=== PATIENT | female | born 1970 | race African-American/Black ===

== ENCOUNTER 2020-05-15 16:45 | Emergency (ER) | payer BC ==
--- NOTE | 2020-05-15 17:10 | EDM.PDOC ---
ED HPI GENERAL MEDICAL PROBLEM - General Chief Complaint: Upper Extremity Injury/Pain Stated Complaint: LEFT FOOT INJURY Time Seen by Provider: 05/15/20 16:47 Source of Information: Reports: Patient History Limitations: Reports: No Limitations - History of Present Illness INITIAL COMMENTS - FREE TEXT/NARRATIVE: HISTORY AND PHYSICAL: History of present illness: Patient is a 50-year-old female who presents to the emergency room with complaints of left foot and second toe pain x2 weeks. She states 2 weeks ago she dropped several cans onto her foot resulting in pain and soft tissue swelling. She states the pain has not improved and she feels she may have broken a bone. Denies any other extremity involvement. Does have some tingling sensation intermittently but full sensation to her distal toes. Denies any weakness of the extremity. No history of diabetes. Patient denies any fever, chills, headache, change in vision, syncope or near syncope. Denies any chest pain, back pain, shortness of breath or cough. Denies any GI or symptoms. Patient has been eating and drinking appropriately. Review of systems: As per history of present illness and below otherwise all systems reviewed and negative. Past medical history: As per history of present illness and as reviewed below otherwise noncontributory. Surgical history: As per history of present illness and as reviewed below otherwise noncontributory. Social history: See social history for further information Family history: As per history of present illness and as reviewed below otherwise noncontribu tory. Physical exam: General: Well developed and well nourished. Alert and orientated x 3. Nontoxic in appearance and in no acute distress. Vital signs are stable and have been reviewed by me. Nursing notes were reviewed. HEENT: Atraumatic, normocephalic, pupils equal and reactive bilaterally, negative for conjunctival pallor or scleral icterus, mucous membranes moist, TMs normal bilaterally, throat clear, neck supple, nontender, trachea midline. No drooling or trismus noted. No meningeal signs. No hot potato voice noted. Lungs: Clear to auscultation, breath sounds equal bilaterally, chest nontender. Normal work of breathing, no accessory muscles used. Heart: S1S2, regular rate and rhythm without overt murmur Abdomen: Soft, nondistended, nontender. Negative for masses or hepatosplenomeg anshul. Negative for costovertebral tenderness. Skin: Intact, warm, dry. No lesions or rashes noted. Hematologic: No petechiae or purpra. Mucosa appropriate color and normal nail bed color and refill. Extremities: Pain with palpation of the mid dorsal aspect of left foot. Mild soft tissue swelling. Skin is intact. Moves all extremities per self without difficulty or deficits, negative for cords or calf pain. Strong pedal and pretibial pulse. Neurovascular unremarkable. Neuro: Awake, alert, oriented. Cranial nerves II through XII unremarkable. Cerebellum unremarkable. Motor and sensory unremarkable throughout. Exam nonfocal. Psychiatric: Mood and affect are appropriate. Normal thought process. Answering questions appropriately. Notes: X-ray shows a mild amount of soft tissue swelling at the dorsum of the distal metatarsals. No fracture or dislocation is noted. There is mild degenerative changes at the first MTP joint. Patient was given Aron wrap and crutches for nonweightbearing and comfort purposes. Encouraged to wear this until she follows up with podiatry or orthopedic provider. We discussed signs and symptoms that would prompt them to return to the Emergency Department. Medication, follow up and supportive care measures were reviewed and discussed. Voices understanding and is agreeable to plan of care. Denies any further questions or concerns at this time. Diagnostics: X-ray foot Therapeutics: Aron wrap and crutches Prescription: Tramadol Impression: Foot sprain Plan: 1. Rest, ice, elevate the affected extremity. Please wear the splint as directed. 2. Tylenol and/or Ibuprofen as needed for pain management. 3. Follow up with the Orthopedic provider as we discussed. Return to the ED as needed and as discussed. Definitive disposition and diagnosis as appropriate pending reevaluation and review of above. left foot Pain Score (Numeric/FACES): 8 - Related Data Allergies Allergy/AdvReac Type Severity Reaction Status Date / Time No Known Allergies Allergy Verified 05/15/20 16:56 Home Meds: Home Meds traMADol [Ultram] 50 mg PO Q4H PRN #15 tab 05/15/20 [Rx] Past Medical History - Infectious Disease History Infectious Disease History: Reports: Chicken Pox, Measles - Past Surgical History HEENT Surgical History: Reports: Oral Surgery Musculoskeletal Surgical History: Reports: Other (See Below) Other Musculoskeletal Surgeries/Procedures:: right leg surgery Social & Family History - Family History Family Medical History: Noncontributory - Tobacco Use Smoking Status *Q: Never Smoker - Caffeine Use Caffeine Use: Reports: Soda - Recreational Drug Use Recreational Drug Use: No Review of Systems - Review of Systems Review Of Systems: Comprehensive ROS is negative, except as noted in HPI. ED EXAM, GENERAL - Physical Exam Exam: See Below (See dictation) Course - Vital Signs Last Recorded V/S: Last Vital Signs Temp 97.6 F 05/15/20 16:56 Pulse 81 05/15/20 16:56 Resp 19 05/15/20 16:56 BP 186/109 H 05/15/20 16:56 Pulse Ox 97 05/15/20 16:56 - Orders/Labs/Meds Orders: Active Orders 24 hr Category Date Time Status DME for Discharge [COMM] Stat Oth 05/15/20 18:30 Ordered Departure - Departure Time of Disposition: 18:39 Disposition: Home, Self-Care 01 Clinical Impression: Sprain of foot, left Qualifiers: Encounter type: initial encounter Qualified Code(s): S93.602A - Unspecified sprain of left foot, initial encounter - Discharge Information Prescriptions: traMADol [Ultram] 50 mg PO Q4H PRN #15 tab PRN Reason: Pain Instructions: Foot Sprain Referrals: PCP,None [Primary Care Provider] - Forms: ED Department Discharge Additional Instructions: The following information is given to patients seen in the emergency department who are being discharged to home. This information is to outline your options for follow-up care. We provide all patients seen in our emergency department with a follow-up referral. The need for follow-up, as well as the timing and circumstances, are variable depending upon the specifics of your emergency department visit. If you don't have a primary care physician on staff, we will provide you with a referral. We always advise you to contact your personal physician following an emergency department visit to inform them of the circumstance of the visit and for follow-up with them and/or the need for any referrals to a consulting specialist. The emergency department will also refer you to a specialist when appropriate. This referral assures that you have the opportunity for follow-up care with a specialist. All of these measure are taken in an effort to provide you with optimal care, which includes your follow-up. Under all circumstances we always encourage you to contact your private physician who remains a resource for coordinating your care. When calling for follow-up care, please make the office aware that this follow-up is from your recent emergency room visit. If for any reason you are refused follow-up, please contact the [facility] Emergency Department at and asked to speak to the emergency department charge nurse. [facility] [address] [place] [address] [facility] [address] [place] [address] Thank you for choosing the [facility] emergency department in [place] for your medical needs today. It was a pleasure caring for you. Today you were seen in the emergency department for foot injury and pain. 1. Rest, ice, elevate the affected extremity. Please wear the splint as directed. 2. Tylenol and/or Ibuprofen as needed for pain management. 3. Follow up with the Orthopedic provider as we discussed. Return to the ED as needed and as discussed. Sepsis Event Note (ED) - Evaluation Sepsis Screening Result: No Definite Risk - Focused Exam Vital Signs: Vital Signs Temp Pulse Resp BP Pulse Ox 05/15/20 16:56 97.6 F 81 19 186/109 H 97 - My Orders Last 24 Hours: My Active Orders 05/15/20 18:30 DME for Discharge [COMM] Stat - Assessment/Plan Last 24 Hours: My Active Orders 05/15/20 18:30 DME for Discharge [COMM] Stat
--- NOTE | 2020-05-15 18:27 | CR ---
INDICATION: Crush injury to foot. TECHNIQUE: Three views left foot COMPARISON: None FINDINGS AND IMPRESSION: No acute fracture or dislocation. No suspicious bone lesion. Mild degenerative change at the 1st MTP joint. Tiny calcaneal enthesophytes noted. Mild amount soft tissue swelling at the dorsum of the distal metatarsals. No radiopaque foreign body. Dictated by Joby Rico MD @ 05/15/2020 6:25:17 PM Dictated by: Joby Rico MD @ 05/15/2020 18:25:26 (Electronically Signed)
== END 2020-05-15 18:21 | disposition home or self-care (01) ==
LOC: MW.ED 16:45
DX: S93.602A Unspecified sprain of left foot, initial encounter (principal); W20.8XXA Other cause of strike by thrown, projected or falling object, initial encounter
CPT/HCPCS: 73630-26-LT; 73630-LT; 99283; 99283-25

== ENCOUNTER 2021-12-07 20:15 | Emergency (ER) | payer OTHER, BC ==
[2021-12-07] MEDS ORDERED: Sodium Chloride 0.9% 20 ML SDV IV PRN (20:47)
[2021-12-07 21:29] LABS: BLOOD UREA NITROGEN,BUN 12 mg/dL (7.0-18.0); CHLORIDE,CL 104 mmol/L (98-107); ESTIMATED GFR > 60.0 ml/min; GLUCOSE RANDOM 100 mg/dL (74-106); LIPASE 186 U/L (73-393); POTASSIUM,K 4.2 mmol/L (3.5-5.1); SODIUM,NA 142 mmol/L (136-145)
[2021-12-07] MEDS ORDERED: Iopamidol 755 MG/ML 500 ML Multipack Bottle IVPUSH ONE (21:54)
== END 2021-12-07 23:15 | disposition home or self-care (01) ==
LOC: MW.ED 20:15
DX: S20.211A Contusion of right front wall of thorax, initial encounter (principal); S20.212A Contusion of left front wall of thorax, initial encounter; S30.1XXA Contusion of abdominal wall, initial encounter; R91.1 Solitary pulmonary nodule; V89.2XXA Person injured in unspecified motor-vehicle accident, traffic, initial encounter; Y92.410 Unspecified street and highway as the place of occurrence of the external cause
CPT/HCPCS: 36415; 71045; 73630; 74177; 80053; 83690; 85025; 99284; Q9967; 99283

== ENCOUNTER 2022-05-29 21:34 | Emergency (ER) | payer BC, OTHER ==
[2022-05-29] MEDS ORDERED: Lactated Ringers 1,000 ML IV STA (22:52)
[2022-05-29] MEDS ORDERED: Meclizine 25 MG Tab PO ONE (22:52)
[2022-05-29 23:28] LABS: CARBON DIOXIDE,CO2 28.7 mmol/L (21.0-32.0); POTASSIUM,K 3.8 mmol/L (3.5-5.1)
[2022-05-30] MEDS ORDERED: Iopamidol 755 MG/ML 500 ML Multipack Bottle IVPUSH STA (00:17)
== END 2022-05-30 06:16 | disposition home or self-care (01) ==
LOC: MW.ED 21:34
DX: R42 Dizziness and giddiness (principal); Z20.822 Contact with and (suspected) exposure to COVID-19
CPT/HCPCS: 36415; 70450; 70496; 70498; 71045; 80053; 83735; 84443; 84484; 84703; 85025; 87635; 93005; 96360; 99284; A9270; J7120; Q9967; U0002

== ENCOUNTER 2022-08-13 14:58 | Emergency (ER) | payer BC ==
[2022-08-13] MEDS ORDERED: Meclizine 25 MG Tab PO ONE (15:23)
[2022-08-13] MEDS ORDERED: Furosemide 40 MG Tab PO ONE (15:24)
[2022-08-13 16:29] LABS: POTASSIUM,K 4.1 mmol/L (3.5-5.1)
== END 2022-08-13 17:24 | disposition home or self-care (01) ==
LOC: MW.ED 14:58
DX: I10 Essential (primary) hypertension (principal)
CPT/HCPCS: 36415; 80053; 83735; 84484; 85025; 93005; 99284; A9270